=== PATIENT | female | born 1965 | race Two or more races ===

== ENCOUNTER 2018-04-05 08:58 | Outpatient (CLI) | payer BC ==
--- NOTE | 2018-04-05 15:21 | Diagnostic Imaging Report ---
Indication: Abdominal pain, history of malrotation demonstrated on prior CT scan Technique: Patient ingested effervescent granules, oral thick and thin liquid barium, and spot and rapid sequence spot images obtained of the esophagus, stomach, and duodenum. Serial overhead images obtained. Spot images obtained of the terminal ileum. Total fluoroscopy time 4 minutes. Total dose area product 391 dGycm2 Number of images: 156 Comparison: none Findings: Bull Bucker image is unremarkable except for median sternotomy sutures and a valve prosthesis Esophagus demonstrates normal motility and distensibility. There is a small sliding-type hiatal hernia. There is minimal dysmotility with the patient drinking in the prone position. The stomach demonstrates normal distensibility and motility. No ulcerations are demonstrated. No filling defects. No gastroesophageal reflux was observed under fluoroscopy. Overhead images demonstrate that the distal duodenum and proximal jejunum do not cross the midline. The entirety of the small bowel is located either to the right side of the abdomen or in the pelvis. The small bowel is normal in caliber, demonstrates a normal mucosal pattern and no filling defects. The colon is seen to opacify on the 2 hour images. The cecum is in the right lower quadrant, ascending colon traverses horizontally across the midline to the left side of the abdomen. The distal transverse colon, hepatic flexure, descending colon all appear to be in the normal location. Impression: No acute abnormality Small bowel malrotation confirmed, reportedly previously demonstrated on other imaging studies Small sliding-type hiatal hernia. Minimal distal esophageal dysmotility.
== END 2018-04-05 10:58 | disposition home or self-care (01) ==
LOC: RAD 08:58
DX: K59.00 Constipation, unspecified (principal); Z95.2 Presence of prosthetic heart valve; K44.9 Diaphragmatic hernia without obstruction or gangrene; K22.4 Dyskinesia of esophagus
CPT/HCPCS: 74249

== ENCOUNTER 2018-09-26 12:24 | Emergency (ER) | payer BC ==
[~2018-09-26] VITALS: Ht 160 cm; Wt 81.2 kg
[2018-09-26] MEDS ORDERED: ASPIR 8181 MG ORAL (12:34)
[2018-09-26] MEDS ORDERED: ZANTAC150 MG ORAL (12:34)
[2018-09-26] MEDS ORDERED: POTASSIUM30 MEQ/22. GT (12:34)
[2018-09-26] MEDS ORDERED: LINZESS290 MCG PO (12:34)
[2018-09-26] MEDS ORDERED: COREG3.125 MG ORAL (12:34)
[2018-09-26 12:35] VITALS: BP 109/75
--- NOTE | 2018-09-26 12:35 | NUR ---
ED Nurse Note: pt walked in to ED due to right lower back pain for 1 week. pt denies any urinal problem. per pt, on antibiotics since Monday. pt also c/o abdominal pain without n/v/d. pt wants us to contact Dr. Whittington for further eval. AAO x4. respirations even and non-labored noted. skin warm to touch. no open wound noted. will wait for the further order.
[2018-09-26] MEDS ORDERED: Isovue-300 100ml vial INJ PRN (13:00)
[2018-09-26 13:21] LABS: BASOPHILS % (AUTO) 1.3 % (0.0-2.0); EOSINOPHILS % (AUTO) 1.7 % (0.0-3.0); HEMATOCRIT 46.4 % (37.0-47.0); HEMOGLOBIN 15.5 G/DL (12.0-16.0); LYMPHOCYTES % (AUTO) 41.2 % (20.0-45.0); MEAN CORPUSCULAR VOLUME 89 FL (80-99); MONOCYTES % (AUTO) 7.8 % (1.0-10.0); PLATELET COUNT 298 K/UL (150-450); RED CELL DISTRIBUTION WIDTH 11.4 % (11.6-14.8)
[2018-09-26 13:26] LABS: APPEARANCE,URINE CLEAR; BILIRUBIN, URINE NEGATIVE (NEGATIVE); GLUCOSE, URINE (UA) NEGATIVE (NEGATIVE); KETONES,URINE NEGATIVE (NEGATIVE); LEUKOCYTE ESTERASE ,URINE NEGATIVE (NEGATIVE); NITRITE,URINE NEGATIVE (NEGATIVE); PH,URINE 6 (4.5-8.0); PROTEIN,URINE NEGATIVE (NEGATIVE); UROBILINOGEN,URINE NORMAL MG/DL (0.0-1.0)
[2018-09-26 13:27] LABS: COLOR,URINE YELLOW
[2018-09-26 13:37] LABS: ANION GAP 8 mmol/L (5-15); BLOOD UREA NITROGEN 17 mg/dL (7-18); CALCIUM 9.7 MG/DL (8.5-10.1); CARBON DIOXIDE 34 MMOL/L (21-32); CHLORIDE 96 MMOL/L (98-107); CREATININE 0.9 MG/DL (0.55-1.30); POTASSIUM 2.8 MMOL/L (3.5-5.1); SODIUM 138 MMOL/L (136-145)
[2018-09-26 13:43] LABS: ALANINE AMINOTRANSFERASE 36 U/L (12-78); ALBUMIN 3.9 G/DL (3.4-5.0); ALKALINE PHOSPHATASE 94 U/L (46-116); ASPARTATE AMINO TRANSFERASE 24 U/L (15-37); BILIRUBIN,TOTAL 0.4 MG/DL (0.2-1.0)
--- NOTE | 2018-09-26 15:04 | Consultation ---
History of Present Illness General Date patient seen: Sep 26, 2018 Reason for Hospitalization: Abdominal Pain Present Illness HPI This a 53-year-old female well-known to me from prior office consultation and evaluation who I have been following for some months now with diagnosed congenital complete bowel malrotation who has began to have symptoms during her adulthood. Patient believes she has had symptoms throughout her whole life but have been more evident in her adulthood at which time she had workup which identified bowel malrotation. She has fortunately not had any significant complications but has had decreased quality of life for time now secondary to her underlying medical condition. She has considered surgical repair in the past but has multiple social reasons which is preventing her from proceeding with surgery. She presented to the emergency department today complaining of worsening abdominal pain and bloating. States that she has been having intermittent bloating and abdominal cramping and right flank pain for the past few days which is worse than usual with the right flank pain being new. No nausea vomiting fever chills pain described as a cramping right flank pain that goes down to her right hip as well as abdominal bloating and generalized abdominal cramping discomfort. Allergies: Coded Allergies: CIPROFLOXACIN (Verified Allergy, Unknown, 09/26/18) Medication History Scheduled Aspirin* (Aspir 81*), 81 MG ORAL EVERY OTHER DAY, (Reported) Carvedilol (Coreg), 3.125 MG ORAL EVERY 12 HOURS, (Reported) Ranitidine Hcl* (Zantac*), 150 MG ORAL DAILY, (Reported) Miscellaneous Medications Linaclotide (Linzess), 290 MCG PO, (Reported) Potassium Chloride (Potassium Chloride), 40 MEQ GT, (Reported) Patient History History Provided By: Patient, Medical Record, PMD Healthcare decision maker Resuscitation status Advanced Directive on File Past Medical/Surgical History Past Medical/Surgical History: (1) Abdominal pain (2) Right flank pain (3) Congenital malrotation of intestine Review of Systems Review of Symptoms General ROS: no weight loss or fever Psychological ROS: no depression or mood changes, no memory loss Ophthalmic ROS: no visual changes or eye irritation ENT ROS: no nasal congestion, hearing loss, dizziness Allergy and Immunology ROS: no allergic symptoms or urticaria Hematological and Lymphatic ROS: no swollen glands, unusual bleeding or bruising Endocrine ROS: no polyuria, polydipsia, weight changes, temperature intolerance Respiratory ROS: no cough, shortness of breath, or wheezing Cardiovascular ROS: no chest pain or dyspnea on exertion Gastrointestinal ROS: denies abdominal pain, bright red blood in stool. Musculoskeletal ROS: no myalgias or arthralgias Neurological ROS: no TIA or stroke symptoms Dermatological ROS: no new or changing skin lesions, rashes or pruritis Physical Exam Physical Exam General appearance: alert, cooperative, no distress, appears stated age Head: Normocephalic, without obvious abnormality, atraumatic Eyes: conjunctivae/corneas clear. PERRL, EOM's intact. Fundi benign Throat: Lips, mucosa, and tongue normal. Teeth and gums normal Neck: supple, symmetrical, trachea midline, no adenopathy, thyroid: not enlarged, symmetric, no tenderness/mass/nodules, no carotid bruit and no JVD Lungs: clear to auscultation bilaterally Heart: regular rate and rhythm, S1, S2 normal, no murmur, click, rub or gallop Abdomen: soft, non-tender. Bowel sounds normal. No masses, no organomegaly Extremities: extremities normal, atraumatic, no cyanosis or edema Pulses: 2+ and symmetric Skin: Skin color, texture, turgor normal. No rashes or lesions Neurologic: Grossly normal Last 24 Hour Vital Signs Date Time Temp Pulse Resp B/P (MAP) Pulse Ox O2 Delivery O2 Flow Rate FiO2 09/26/18 12:35 63 16 Room Air 09/26/18 12:35 97.9 63 16 109/75 96 Room Air 09/26/18 12:28 97.9 63 16 109/75 96 Room Air Laboratory Tests Test 09/26/18 13:00 White Blood Count 9.0 K/UL (4.8-10.8) Red Blood Count 5.20 M/UL (4.20-5.40) Hemoglobin 15.5 G/DL (12.0-16.0) Hematocrit 46.4 % (37.0-47.0) Mean Corpuscular Volume 89 FL (80-99) Mean Corpuscular Hemoglobin 29.8 PG (27.0-31.0) Mean Corpuscular Hemoglobin Concent 33.4 G/DL (32.0-36.0) Red Cell Distribution Width 11.4 % (11.6-14.8) L Platelet Count 298 K/UL (150-450) Mean Platelet Volume 7.2 FL (6.5-10.1) Neutrophils (%) (Auto) 48.0 % (45.0-75.0) Lymphocytes (%) (Auto) 41.2 % (20.0-45.0) Monocytes (%) (Auto) 7.8 % (1.0-10.0) Eosinophils (%) (Auto) 1.7 % (0.0-3.0) Basophils (%) (Auto) 1.3 % (0.0-2.0) Urine Color Yellow Urine Appearance Clear Urine pH 6 (4.5-8.0) Urine Specific [place] 1.010 (1.005-1.035) Urine Protein Negative (NEGATIVE) Urine Glucose (UA) Negative (NEGATIVE) Urine Ketones Negative (NEGATIVE) Urine Blood Negative (NEGATIVE) Urine Nitrite Negative (NEGATIVE) Urine Bilirubin Negative (NEGATIVE) Urine Urobilinogen Normal MG/DL (0.0-1.0) Urine Leukocyte Esterase Negative (NEGATIVE) Sodium Level 138 MMOL/L (136-145) Potassium Level 2.8 MMOL/L (3.5-5.1) L Chloride Level 96 MMOL/L (98-107) L Carbon Dioxide Level 34 MMOL/L (21-32) H Anion Gap 8 mmol/L (5-15) Blood Urea Nitrogen 17 mg/dL (7-18) Creatinine 0.9 MG/DL (0.55-1.30) Estimat Glomerular Filtration Rate > 60 mL/min (>60) Glucose Level 103 MG/DL (74-106) Calcium Level 9.7 MG/DL (8.5-10.1) Total Bilirubin 0.4 MG/DL (0.2-1.0) Aspartate Amino Transf (AST/SGOT) 24 U/L (15-37) Alanine Aminotransferase (ALT/SGPT) 36 U/L (12-78) Alkaline Phosphatase 94 U/L (46-116) Total Protein 7.9 G/DL (6.4-8.2) Albumin 3.9 G/DL (3.4-5.0) Globulin 4.0 g/dL Albumin/Globulin Ratio 1.0 (1.0-2.7) Lipase 179 U/L (73-393) Height (Feet): 5 Height (Inches): 3.00 Weight (Pounds): 179 Medications Current Medications Medications (Trade) Dose Ordered Sig/K[place]on Route PRN Reason Start Time Stop Time Status Last Admin Dose Admin Barium Sulfate (Readi-Cat 2) 450 ml NOW PRN ORAL Radiology Procedure 09/26/18 13:00 09/28/18 12:48 Iopamidol (Isovue-300 100ml) 100 ml NOW PRN INJ Radiology Procedure 09/26/18 13:00 Assessment/Plan Problem List: (1) Abdominal pain Assessment & Plan: Acute onset generalized abdominal discomfort and right flank discomfort. Afebrile hemodynamic stable labs normal. On examination no significant tenderness in the abdomen or right flank just complains of mild discomfort. States that she has been working out more recently with a head athletic trainer. No acute surgical intervention currently planned. Patient is seemingly stable and otherwise comfortable. -CT A/P with IV and Oral contrast to ensure uncomplicated given medical history -If CT okay, plan to d/c home with follow up with me next week 10/03/18 @ 10AM in the office -f/u with PCP thank you ICD Codes: R10.9 - Unspecified abdominal pain SNOMED: [id number] Qualifiers: Qualified Codes: R10.84 - Generalized abdominal pain (2) Right flank pain ICD Codes: R10.9 - Unspecified abdominal pain SNOMED: [id number] Deo Hunter Sep 26, 2018 15:04
--- NOTE | 2018-09-26 15:55 | Diagnostic Imaging Report ---
Clinical Indication: Abdominal pain, right lower back pain for one week Technique: Patient given oral contrast. IV administration nonionic contrast. Venous phase spiral acquisition obtained through the abdomen and pelvis. Multiplanar reconstructions were generated. Total dose length product 916.39 mGycm. CTDIvol(s) 16.82 mGy. Dose reduction achieved using automated exposure control Comparison: none Findings: The appendix is not definitely identified, but no findings to suggest acute appendicitis are demonstrated. No evidence of diverticulosis or diverticulitis. There is a tiny sliding-type hiatal hernia. The remainder of the stomach is unremarkable. The duodenum is unremarkable. There is evidence of malrotation, as the ligament of Treitz does not cross the midline, the colon is predominantly left-sided and anterior, and the superior mesenteric vein courses to the left of the superior mesenteric artery. There is no evidence of midgut volvulus. Proximal small bowel loops are slightly prominent, demonstrates equivocal slight mucosal enhancement. The liver, gallbladder, bile ducts, pancreas, spleen, adrenals are unremarkable. No renal or ureteral calculi, hydronephrosis, or hydroureter. A subcentimeter low-attenuation lesion is seen in the interpolar region of the left kidney. The uterus and ovaries are unremarkable. The included lung bases demonstrate minimal posterior dependent atelectatic changes. There is evidence of prior aortic valvular surgery incidentally noted. The aortic root is mildly ectatic. The bones demonstrate minimal degenerative spondylosis of the low sacral junction. Impression: No acute abnormality slightly prominent proximal small bowel loops, equivocal slight mucosal enhancement; doubt significance but could indicate mild enteritis changes. Correlate with clinical findings No acute abnormality otherwise Evidence of midgut malrotation Subcentimeter low-attenuation left renal lesion, too small to characterize, most likely benign simple cortical cysts. No further follow-up is necessary. Other findings as noted, including mild degenerative spondylosis, posterior dependent pulmonary atelectatic changes, evidence of prior aortic valvular surgery The CT scanner at [facility] is accredited by the [employer] and the scans are performed using protocols designed to limit radiation exposure to as low as reasonably achievable to attain images of sufficient resolution adequate for diagnostic evaluation.
[2018-09-26] MEDS ORDERED: LIDOCAINE VISC100 ML ORAL (16:47)
--- NOTE | 2018-09-26 16:47 | Emergency Room Report ---
History of Present Illness General Chief Complaint: Abdominal Pain Source: Patient, Medical Record, PMD Present Illness HPI 53-year-old female presents to the emergency department complaining of 8 out of 10 in severity right lower quadrant abdominal pain that radiates towards the right flank times one week. Patient also reports some epigastric discomfort as well. Denies N/V/D/C. She states she has a history of malrotation and hiatal hernia. Patient states that she has been taking Antibiotics without relief. Denies hx of renal calculi. Patient reports that she is able to pass gas. She denies fevers or chills. Denies blood in her stool or dark tarry stools. Allergies: Coded Allergies: CIPROFLOXACIN (Verified Allergy, Unknown, 09/26/18) Patient History Past Medical History: see triage record Past Surgical History: none Pertinent Family History: none Last Menstrual Period: 2007 Now: No Reviewed Nursing Documentation: PMH: Agreed; PSxH: Agreed Nursing Documentation-PMH Past Medical History: No History, Except For Hx Cardiac Problems: Yes - S/P VALVE REPLACEMENT 2017 Hx Hypertension: Yes Review of Systems All Other Systems: negative except mentioned in HPI Physical Exam Vital Signs Date Time Temp Pulse Resp B/P (MAP) Pulse Ox O2 Delivery O2 Flow Rate FiO2 09/26/18 12:28 97.9 63 16 109/75 96 Room Air Sp02 EP Interpretation: reviewed, normal General Appearance: no apparent distress, alert, GCS 15, non-toxic Head: normocephalic, atraumatic Eyes: bilateral eye normal inspection, bilateral eye PERRL ENT: hearing grossly normal, normal voice Neck: full range of motion Respiratory: lungs clear, normal breath sounds, speaking full sentences Cardiovascular #1: regular rate, rhythm Gastrointestinal: normal bowel sounds, soft, tenderness - RUQ, RLQ and Epigastric TTP- Mild, no rebound, non-distended Rectal: deferred Genitourinary: normal inspection, no CVA tenderness Musculoskeletal: gait/station normal, non-tender Neurologic: alert, oriented x3, responsive, motor strength/tone normal, sensory intact, normal gait, speech normal, grossly normal Psychiatric: judgement/insight normal Skin: normal color, no rash, warm/dry, well hydrated Medical Decision Making PA Attestation Dr. noe is my supervising Physician whom patient management has been discussed with. Diagnostic Impression: Primary Impression: Abdominal pain Qualified Codes: R10.84 - Generalized abdominal pain ER Course 53-year-old female presents to the emergency department complaining of 8 out of 10 in severity right lower quadrant abdominal pain that radiates towards the right flank times one week. Patient also reports some epigastric discomfort as well. Denies N/V/D/C. She states she has a history of malrotation and hiatal hernia. Patient states that she has been taking Antibiotics without relief. Denies hx of renal calculi. Patient reports that she is able to pass gas. She denies fevers or chills. Denies blood in her stool or dark tarry stools. Ddx considered but are not limited to Diverticulitis, acute appendicitis, UC, PUD, GE, pancreatitis, gallstones, Obstruction, or renal calculi just to name a few. Vital signs: are WNL, pt. is afebrile ORDERS: -CBC, CMP, LIPASE: unremarkable other than potassium of 2.8, pt. reports taking potassium supplementation. -UA: unremarkable -CT Abdomen and Pelvis W. Contrast: Unremarkable ED INTERVENTIONS: -Consult w. Dr. Hunter -I do not identify an emergent condition at this time. With current presentation , this pt. is stable for close outpatient follow up and conservative treatment. D/w pt. to return promptly to ED with worsening or new symptoms.- Pt. verbalizes' understanding and agreement with proposed treatment plan. DISCHARGE: At this time pt. is stable for d/c to home. Will provide printed patient care instructions, and any necessary prescriptions. Care plan and follow up instructions have been discussed with the patient prior to discharge. Labs Test 09/26/18 13:00 White Blood Count 9.0 K/UL (4.8-10.8) Red Blood Count 5.20 M/UL (4.20-5.40) Hemoglobin 15.5 G/DL (12.0-16.0) Hematocrit 46.4 % (37.0-47.0) Mean Corpuscular Volume 89 FL (80-99) Mean Corpuscular Hemoglobin 29.8 PG (27.0-31.0) Mean Corpuscular Hemoglobin Concent 33.4 G/DL (32.0-36.0) Red Cell Distribution Width 11.4 % (11.6-14.8) Platelet Count 298 K/UL (150-450) Mean Platelet Volume 7.2 FL (6.5-10.1) Neutrophils (%) (Auto) 48.0 % (45.0-75.0) Lymphocytes (%) (Auto) 41.2 % (20.0-45.0) Monocytes (%) (Auto) 7.8 % (1.0-10.0) Eosinophils (%) (Auto) 1.7 % (0.0-3.0) Basophils (%) (Auto) 1.3 % (0.0-2.0) Urine Color Yellow Urine Appearance Clear Urine pH 6 (4.5-8.0) Urine Specific [place] 1.010 (1.005-1.035) Urine Protein Negative (NEGATIVE) Urine Glucose (UA) Negative (NEGATIVE) Urine Ketones Negative (NEGATIVE) Urine Blood Negative (NEGATIVE) Urine Nitrite Negative (NEGATIVE) Urine Bilirubin Negative (NEGATIVE) Urine Urobilinogen Normal MG/DL (0.0-1.0) Urine Leukocyte Esterase Negative (NEGATIVE) Sodium Level 138 MMOL/L (136-145) Potassium Level 2.8 MMOL/L (3.5-5.1) Chloride Level 96 MMOL/L (98-107) Carbon Dioxide Level 34 MMOL/L (21-32) Anion Gap 8 mmol/L (5-15) Blood Urea Nitrogen 17 mg/dL (7-18) Creatinine 0.9 MG/DL (0.55-1.30) Estimat Glomerular Filtration Rate > 60 mL/min (>60) Glucose Level 103 MG/DL (74-106) Calcium Level 9.7 MG/DL (8.5-10.1) Total Bilirubin 0.4 MG/DL (0.2-1.0) Aspartate Amino Transf (AST/SGOT) 24 U/L (15-37) Alanine Aminotransferase (ALT/SGPT) 36 U/L (12-78) Alkaline Phosphatase 94 U/L (46-116) Total Protein 7.9 G/DL (6.4-8.2) Albumin 3.9 G/DL (3.4-5.0) Globulin 4.0 g/dL Albumin/Globulin Ratio 1.0 (1.0-2.7) Lipase 179 U/L (73-393) CT/MRI/US Diagnostic Results CT/MRI/US Diagnostic Results : Imaging Test Ordered: CT Abdomen and Pelvis W. Contrast Impression "Impression: No acute abnormality slightly prominent proximal small bowel loops, equivocal slight mucosal enhancement; doubt significance but could indicate mild enteritis changes. Correlate with clinical findings" ---Per official radiology report- Please see report for specific details. Last Vital Signs Date Time Temp Pulse Resp B/P (MAP) Pulse Ox O2 Delivery O2 Flow Rate FiO2 09/26/18 12:35 63 16 Room Air 09/26/18 12:35 97.9 109/75 96 Disposition: HOME, SELF-CARE Condition: Stable Physician Consult: Dr. Elsa Hough Lidocaine HCl 2% Viscous (Lidocaine HCl 2% Viscous) 100 Ml Solution 15 ML ORAL QID, #150 ML Prov: Lana Colunga 09/26/18 Referrals: Armando David MD (PCP) Patient Instructions: Abdominal Pain, Adult Additional Instructions: Take medications as directed. Follow up with a Primary Care Provider in 3-5 days, even if your symptoms have resolved. --Please review list of primary care clinics, if you do not already have a primary care provider Return sooner to ED if new symptoms occur, or current symptoms become worse. - Please note that this Emergency Department Report was dictated using Signdatdistribution system operator technology software, occasionally this can lead to erroneous entry secondary to interpretation by the dictation equipment. Lana Colunga Sep 26, 2018 16:47
[2018-09-26 17:24] VITALS: BP 109/75
--- NOTE | 2018-09-26 17:24 | NUR ---
ED Nurse Note: PT. AAOX4. AMBULATORY. LEFT WITH STEADY GAIT..REGARDING D/C PAPERS AND PRESCRIPTIONS. PT. VERBALIZED THE UNDERSTANDING OF THE TEACHING. ID ARMBAND REMOVED. LEFT WITH ALL BELONGINGS.
== END 2018-09-26 17:24 | disposition home or self-care (01) ==
LOC: EMR 13:10
DX: R10.31 Right lower quadrant pain (principal); I10 Essential (primary) hypertension; Z95.2 Presence of prosthetic heart valve; Z88.1 Allergy status to other antibiotic agents
CPT/HCPCS: 36415; 74177; 80053; 81003; 83690; 85025; 99284; Q9967